=== PATIENT | female | born 1995 | race Caucasian/White ===

== ENCOUNTER 2018-04-22 11:04 | Day surgery (SDC) | payer MEDICAID ==
[~2018-04-22] VITALS: Ht 152.4 cm; Wt 99.3 kg
[~2018-04-22 11:04] MED LIST: VITA100067 PO; VITMTA PO
[2018-04-22] MEDS ORDERED: LR 1,000 ML IV ONE (11:30)
[2018-04-22] MEDS ORDERED: VANCOMYCIN HCL 1,000 MG, VIAL MATE ADAPTER 1 EACH in D5W 250 ML IV ONE (12:00)
[2018-04-22] MEDS ORDERED: LIDOCAINE 1% SDV INJ 30 ML VIAL As Ordered ONE (12:07)
[2018-04-22] MEDS ORDERED: fentaNYL 100 MCG/2 ML INJECTION (J3010) As Ordered ONE (13:10)
[2018-04-22] MEDS ORDERED: MIDAZOLAM INJ 2 MG/2 ML VIAL (J2250) As Ordered ONE (13:10)
[2018-04-22] MEDS ORDERED: LIDOCAINE 2% INJ 100 MG/5 ML SDV (FOR ANES.) As Ordered ONE (13:10)
[2018-04-22] MEDS ORDERED: ONDANSETRON 4MG/2ML VIAL (J2405) As Ordered ONE (13:10)
[2018-04-22] MEDS ORDERED: PROPOFOL 200 MG/20 ML VIAL As Ordered ONE (13:10)
[2018-04-22 14:10] VITALS: BP 131/76
--- NOTE | 2018-04-22 14:16 | RO ---
DATE OF PROCEDURE: 04/22/2018 PREPROCEDURE DIAGNOSIS: Implantable loop recorder in situ. POSTPROCEDURE DIAGNOSIS: Implantable loop recorder in situ. PROCEDURE: Explantation of implantable loop recorder. SURGEON: Dr. Juanito Guerrero. INSTRUMENTATION ENGINEERING TECHNICIAN: None. ANESTHESIA: Lidocaine 1% local/monitored anesthetic care. SPECIMENS: Old [employer] Reveal LINQ implantable loop recorder. ESTIMATED BLOOD LOSS: Less than 2 mL. No blood products. No drains. No complications. FINDINGS: Implantable loop recorder in situ. DESCRIPTION OF PROCEDURE: The patient was prepped and draped over the site of the old implantable loop recorder (left anterior chest). Preoperative antibiotics were not given because she reports an allergy to penicillins and to vancomycin. Lidocaine 1% was used for local anesthetic. An incision was made with a #15 blade very close to the old incision of the implantable loop recorder. A small amount of cautery was used to get through the scar tissue directly overlying the loop recorder. Hemostat was used to director packaging the loop recorder and plucked from the pocket successfully. A single deep stitch consisting of #2-0 Vicryl was used to close the deep layer. A #4-0 Vicryl was used subcuticular to approximate the skin with the first stitch tied deep and the end of the stitch pulled through the skin untied at the opposite end. Two layers of Dermabond was applied. After the Dermabond was dry, three half-inch Steri-Strips, which were cut in half were applied perpendicular to the incision and to help secure these Mastisol was placed on the skin above and below the incision to either side being careful not to get any of the Mastisol on the Dermabond. Patient tolerated the procedure well without any immediate complications.
[2018-04-22] MEDS ORDERED: ONDANSETRON 4MG/2ML VIAL (J2405) IV PRN (14:30)
[2018-04-22] MEDS ORDERED: LR 1,000 ML IV SCH (14:30)
== END 2018-04-22 14:15 | disposition home or self-care (01) ==
LOC: M SDC 11:04
PROVIDERS: ATTEND Internal Medicine Cardiovascular Disease
DX: Z45.09 Encounter for adjustment and management of other cardiac device (principal); I63.9 Cerebral infarction, unspecified; Z88.0 Allergy status to penicillin
CPT/HCPCS: 33286; J2250; J2405; J3010

== ENCOUNTER → 2018-06-28 | Outpatient (REF) | payer OTHER | LOC: M LAB REF 16:18 | PROVIDERS: ATTEND Physician Assistant | DX: J02.9 Acute pharyngitis, unspecified (principal) ==